=== PATIENT | female | born 1950 | race Caucasian/White ===

== ENCOUNTER 2021-05-09 09:58 | Outpatient (CLI) | payer MEDICARE, BC, SELFPAY ==
--- NOTE | 2021-05-09 09:45 | DI.RAD_ITS ---
Exam(s) XR PELVIS AP EXAM: XR PELVIS AP CLINICAL HISTORY: hip pain. TECHNIQUE: 2D digital imaging was performed. COMPARISON: No exams were available for comparison FINDINGS: No evidence of pelvic nor obvious hip fracture. Some calcification is noted off the superolateral as pect of the right hip which is possibly labral calcification. There is no significant joint space na rrowing in either hip. No obvious osteophytes. Sacroiliac joints appear age-appropriate. Single birch rgical clip in left side of the pelvis is noted. No osseous lesions. IMPRESSION: DATA REPOSITORY: RADIATION DOSE DELIVERED:
--- NOTE | 2021-05-09 09:45 | DI.RAD_ITS ---
Exam(s) XR KNEE RT 3V AP,LAT,RHEA EXAM: XR KNEE RT 3V AP,LAT,RHEA CLINICAL HISTORY: knee pain. TECHNIQUE: 2D digital imaging was performed. COMPARISON: No exams were available for comparison FINDINGS: There is no evidence of fracture but there does appear to be a small amount of increased joint fluid in the right knee. There is mild narrowing of the medial compartment. Chondrocalcinosis is noted in both the medial and lateral compartments, similar to the opposite side. Bone density is age-appropr iate. IMPRESSION: DATA REPOSITORY: RADIATION DOSE DELIVERED:
--- NOTE | 2021-05-09 09:45 | DI.RAD_ITS ---
Exam(s) XR KNEE LT 3V AP,LAT,RHEA EXAM: XR KNEE LT 3V AP,LAT,RHEA CLINICAL HISTORY: knee pain. TECHNIQUE: 2D digital imaging was performed. COMPARISON: CR XR KNEE RT 3V AP,LAT,RHEA from 05/09/2021 FINDINGS: No evidence of fracture nor left knee joint effusion. Mild narrowing of the medial compartment is no charles. There is chondrocalcinosis noted in both medial lateral compartments. No osseous lesions. Bon e density is age-appropriate. IMPRESSION: DATA REPOSITORY: RADIATION DOSE DELIVERED:
== END 2021-05-09 09:59 | disposition home or self-care (01) ==
LOC: DIORS 10:00
PROVIDERS: PCP Legal Medicine; Visit Provider Physician Assistant
DX: M11.261 Other chondrocalcinosis, right knee (principal); M11.262 Other chondrocalcinosis, left knee; M25.851 Other specified joint disorders, right hip
CPT/HCPCS: 73562; 72170

== ENCOUNTER → 2021-08-01 11:31 | Outpatient (BNVA) | payer MEDICARE, BC, SELFPAY | PROVIDERS: PCP Legal Medicine; Referring Provider Legal Medicine; Visit Provider Student in an Organized Health Care Education/Training Program | DX: M70.62 Trochanteric bursitis, left hip (principal); M11.262 Other chondrocalcinosis, left knee; M11.261 Other chondrocalcinosis, right knee; M25.561 Pain in right knee; M25.562 Pain in left knee | CPT/HCPCS: 20610; 99213; J1040 ==

== ENCOUNTER → 2022-05-30 08:51 | Outpatient (BNVA) | payer MEDICARE, BC, SELFPAY | PROVIDERS: PCP Legal Medicine; Referring Provider Legal Medicine; Visit Provider Physician Assistant | DX: M70.62 Trochanteric bursitis, left hip (principal) | CPT/HCPCS: 20610; J1040 ==

== ENCOUNTER → 2022-07-09 01:23 | Outpatient (CLI) | payer MEDICARE, BC, SELFPAY ==
--- NOTE | 2022-07-09 08:45 | DI.MAMMO_ITS ---
Exam(s) MAMMO SCREENING EXAM: MAMMO SCREENING CLINICAL HISTORY: SCREENING, Z12.39. TECHNIQUE: Bilateral full field digital CC and MLO mammographic images were obtained with 3D tomosyn thesis and utilizing computer aided detection (CAD). COMPARISON: Prior outside mammograms dating back to May 2019 (3 years) were reviewed, the most recent being June 2021. There is a significant family history here. Both her mother and sister were diagnosed with breast ca ncer, the sister prior to age 50. FINDINGS: There has been no significant change in appearance and distribution of the fibroglandular tissue. There are no new significant findings in the right breast. There are no new findings in the immediate vicinity of the biopsy marker clip in the left breast. Anteriorly in the left breast there are 2 findings. Firstly there is a small group of microcalcifica tions seen on the CC view located approximately 4 cm in from the nipple, slightly medial of center. These are unchanged from May 2019. There is also a small noncalcified nodular density anterior to this on the 3D cc view measuring 5 x 4 millimeters, located 3.5 cm in from the nipple, medial of center. This also was previously present on prior mammograms. No other significant focal left breast findings. There is no significant architectural distortion nor skin thickening-retraction. IMPRESSION: 1. No radiographic evidence of malignancy in the right breast. 2. To left breast findings as described above which are relatively stable when compared to outside ma mmograms dating back to 2018. I feel would be helpful to acquire any available additional further ba ck mammograms for comparison purposes. These are being sent for. An addendum to this mammogram report will follow. If you have not received this addendum in 2 weeks time then please contact me in the [facility] Radiology Department. BI-RADS Category 0 - Assessment Incomplete: Need additional imaging evaluation; specifically comparis on to additional prior mammograms, as described above. These are being sent for. Breast Density - Category B - Scattered areas of fibroglandular density Breast density Category C or D implies that the patient has dense breast tissue. Dense breast tissue can make it harder to find cancer on a mammogram. Dense breast tissue is also associated with an incr eased risk of breast cancer. This information about the result of the mammogram report was provided to the patient to raise their awareness. Use this report when you speak with the patient about their risks for breast cancer, which includes their family history. At that time, you may recommend additional screening tests (Ultrasoun d or MRI) as these tests may add significant information. A negative radiographic report should not delay biopsy if a dominant or clinically suspicious mass is present. Up to ten percent of cancers are not identified on mammography. A negative report may reinforce clinical impression. Adenosis and dense breasts may obscure an underlying neoplasm. False positive reports average 6 to 10%. Patient will receive a letter notifying them of these results.
== END ==
PROVIDERS: PCP Legal Medicine; Visit Provider Legal Medicine
DX: Z12.31 Encounter for screening mammogram for malignant neoplasm of breast (principal); R92.8 Other abnormal and inconclusive findings on diagnostic imaging of breast
CPT/HCPCS: 77063; 77067

== ENCOUNTER 2022-09-10 02:06 | Outpatient (CLI) | payer MEDICARE, BC, SELFPAY ==
[2022-09-12 06:03] LABS: IgA 200 mg/dL (85-499); IgG 1064 mg/dL (610-1616); IgM 37 mg/dL (35-242)
[2022-09-12 09:30] LABS: HBs Antibody, Quant <3.1 mIU/mL (See Note); Hepatitis B Surface Ab Negative (See Note)
[2022-09-12 09:47] LABS: Hepatitis B Surface Ag Negative (Negative)
[2022-09-13 13:40] LABS: Tissue Transglutaminase Ab IgA <1.2 U/mL
[2022-09-13 18:12] LABS: Mitochondrial Ab, M2 <0.1 U
== END 2022-09-10 02:07 | disposition home or self-care (01) ==
LOC: LBO 02:06
PROVIDERS: PCP Legal Medicine; Visit Provider Legal Medicine
DX: R74.01 Elevation of levels of liver transaminase levels (principal)
CPT/HCPCS: 36415; 82784; 83516; 86706; 87340

== ENCOUNTER → 2022-09-12 00:11 | Outpatient (CLI) | payer MEDICARE, BC, SELFPAY ==
--- NOTE | 2022-09-12 | DI.US_ITS ---
Exam(s) US ABDOMEN EXAM: US ABDOMEN CLINICAL HISTORY: ELEVATED TRANSAMINASES,? FATTY LIVER, CIRRHOSIS TECHNIQUE: Ultrasound abdomen performed using standard protocol. COMPARISON: No exams were available for comparison FINDINGS: Examination limited by patient body habitus. ABDOMINAL AORTA AND IVC: Visualized portions normal caliber. PANCREAS: Normal where visualized. LIVER: The liver appears to be of increased echogenicity consistent with fatty infiltration. It is n ormal in size measuring 15 cm long. Hepatopedal flow in the Portal Vein. GALLBLADDER:Status post cholecystectomy. BILIARY SYSTEM: Common bile duct measures < 7 mm. No intrahepatic biliary ductal dilation. KIDNEYS: The kidneys are difficult to visualize due to the patient body habitus. Given the limitatio ns of the examination, no stones or renal masses identified. Kidneys are symmetric in size. No evid ence of hydronephrosis. SPLEEN: Not enlarged. ASCITES: None seen. IMPRESSION: 1. Examination limited by patient body habitus. 2. Findings suggestive of fatty infiltration of the liver. 3. Status post cholecystectomy. No biliary ductal dilatation. DATA REPOSITORY:
== END ==
PROVIDERS: PCP Legal Medicine; Visit Provider Legal Medicine
DX: K76.0 Fatty (change of) liver, not elsewhere classified (principal); R74.01 Elevation of levels of liver transaminase levels; Z90.49 Acquired absence of other specified parts of digestive tract
CPT/HCPCS: 76700

== ENCOUNTER → 2023-09-08 00:45 | Outpatient (CLI) | payer MEDICARE, BC, SELFPAY ==
--- NOTE | 2023-09-08 | DI.MAMMO_ITS ---
Exam(s) MAMMO SCREENING EXAM: MAMMO SCREENING CLINICAL HISTORY: SCREENING MAMMO FOR BREAST CANCER Z12.31. TECHNIQUE: Bilateral full field digital CC and MLO mammographic images were obtained with 3D tomosyn thesis and utilizing computer aided detection (CAD). COMPARISON: Prior mammograms were reviewed. FINDINGS: There has been no significant change in the appearance and distribution of the fibroglandular tissue. No new right breast findings. No new findings in the immediate vicinity of the biopsy marker clip which is located anteriorly in th e left breast. Stable microcalcification group in the left breast is again noted. There are no new malignant-appearing microcalcification groups. There is no significant architectural distortion nor skin thickening-retraction. IMPRESSION: Stable benign-appearing findings. No radiographic evidence of malignancy BI-RADS Category 2 - Benign Findings Breast Density - Category B - Scattered areas of fibroglandular density Breast density Category C or D implies that the patient has dense breast tissue. Dense breast tissue can make it harder to find cancer on a mammogram. Dense breast tissue is also associated with an incr eased risk of breast cancer. This information about the result of the mammogram report was provided to the patient to raise their awareness. Use this report when you speak with the patient about their risks for breast cancer, which includes their family history. At that time, you may recommend additional screening tests (Ultrasoun d or MRI) as these tests may add significant information. A negative radiographic report should not delay biopsy if a dominant or clinically suspicious mass is present. Up to ten percent of cancers are not identified on mammography. A negative report may reinforce clinical impression. Adenosis and dense breasts may obscure an underlying neoplasm. False positive reports average 6 to 10%. Patient will receive a letter notifying them of these results.
== END ==
PROVIDERS: PCP Legal Medicine; Visit Provider Legal Medicine
DX: Z12.31 Encounter for screening mammogram for malignant neoplasm of breast (principal)
CPT/HCPCS: 77063; 77067

== ENCOUNTER → 2023-09-24 00:55 | Outpatient (CLI) | payer MEDICARE, BC, SELFPAY ==
--- NOTE | 2023-09-24 | ETT_ITS ---
APPROVED REPORT Exam: Exercise Treadmill Patient Location: Out-Patient Room/Bed: Stress Nurse: Zoe Cisneros RN Ordering Provider:YAAKOV DELANEY, Contact Number: [phone] BMI: 35.72 Baseline Rhythm: Sinus Bradycardia Indications: Chest pressure, Medical History Medical History: Hearing loss, fibromyalgia, HTN, hodgkins disease Cardiac Medications: Amlodipine, atenolol Allergies: Sulfa Cardiac Risk Factors: Family hx, HTN, obesity Previous Cardiac Procedures: None Pretest Chest Pain Characteristics: None Exercise History: Indeterminate Physical Disabilities: Left knee Lung Sounds: Clear to auscultation Heart Sounds: Regular Stress Test Details Test: Exercise stress testing was performed using a Christiano protocol. Rest Stress HR Resting HR Supine: 59 bpm Max Heart Rate (APMHR): 150 bpm Resting HR Standin bpm Target HR (85% APMHR): 128 bpm Max HR Achieved: 128 bpm % of APMHR: 85 Recovery HR: 69 bpm HR response to stress: Normal HR response to stress BP Resting BP Supine: 162/96 mmHg Resting BP Standin/92 mmHg Max BP: 174/68 mmHg Recovery BP: 146/86 mmHg BP response to stress: Normal blood pressure response to stress. ECG Resting ECG: Sinus Bradycardia Ectopy: None Stress ECG: Sinus Tachycardia ST Change: Horizontal ST depression, Downsloping ST depression Lead(s): Inferior, V6 Stage: [address] Deviation: 1-4 mm Arrhythmia: None Recovery ECG: Sinus Rhythm Recovery ST Change: Horizontal ST depression, Downsloping ST depression Lead(s): inferior, V6 Recovery ST Deviation: 1-4 mm Recovery Arrhythmia: None Clinical Reason for Termination: Dyspnea , Target HR Achieved, , Fatigue Stress Symptoms: Dyspnea, General Fatigue Exercise duration: 06 min15 sec Highest Stage Reached: Stage 2: 2.5 mph at 12% grade. Exercise capacity: 5.3 METs Angina Score: None Jules Treadmill Score: 5.0 Rate Pressure Product: [id number] Stress ECG Conclusion 1. 1.Normal clinical response 2. 2.Normal BP response 3. 3.Normal HR response 4. 4. Equivocal ECG with poor baseline ans possible inferolateral ST abnormality suggestive of ischem ia. Jules Treadmill Score is 5.0 which is Low risk. Stress Test Summary STAGE Time (mins) Speed (mph) Grade (%) HR BP SpO2 SYMPTOMS METS Supine 59 162/96 94 Standing 71 148/92 1 3 1.7 10 115 170/84 4.5 2 6 2.5 12 128 7 1 min recovery 110 174/68 98 3 min recovery 79 170/72 6 min recovery 69 146/86 98
== END ==
PROVIDERS: PCP Legal Medicine; Visit Provider Legal Medicine
DX: R07.89 Other chest pain (principal)
CPT/HCPCS: 93016; 93018; 93017

== ENCOUNTER 2024-10-06 00:13 | Outpatient (CLI) | payer MEDICARE, BC, SELFPAY ==
--- NOTE | 2024-10-06 | DI.MAMMO_ITS ---
Exam(s) MAMMO SCREENING EXAM: MAMMO SCREENING CLINICAL HISTORY: SCREENING, Z12.31,STRONG FAMILY H/O BREAST CA TECHNIQUE: Mammograms were interpreted according to the usual protocol including computer analysis w Normal CAD system, tomosynthesis and C-view imaging. COMPARISON: 2014 through 2022 FINDINGS: The breasts are composed of scattered fibroglandular densities, Breast Density category B. No suspicious masses or suspicious microcalcifications are seen. Biopsy marker clip noted in left br east. No skin thickening or abnormal axillary lymph nodes are seen. There has been no significant change from prior exams. IMPRESSION: BI-RADS Category 1, Negative mammogram Yearly screening mammography is recommended. Breast Density - Category B, scattered fibroglandular densities. A negative radiographic report should not delay biopsy if a dominant or clinically suspicious mass is present. Up to ten percent of cancers are not identified on mammography. A negative report may reinforce clinical impression. Adenosis and dense breasts may obscure an underlying neoplasm. False positive reports average 6 to 10%. Patient will receive a letter notifying them of these results.
== END 2024-10-06 00:33 ==
PROVIDERS: PCP Legal Medicine; Visit Provider Legal Medicine
DX: Z12.31 Encounter for screening mammogram for malignant neoplasm of breast (principal); R92.323 Mammographic fibroglandular density, bilateral breasts
CPT/HCPCS: 77063; 77067

== ENCOUNTER 2025-03-30 01:04 | Outpatient (CLI) | payer MEDICARE, BC, SELFPAY ==
--- NOTE | 2025-03-30 | DI.NM_ITS ---
APPROVED REPORT Exam: Pharmacologic Patient Location: Out-Patient Room/Bed: Stress Nurse: Zoe Cisneros RN Ordering Provider:YAAKOV DELANEY, Contact Number: [phone] BMI: 36.80 Baseline Rhythm: Sinus Bradycardia Comment: 1st degree AV block Indications: Exertional shortness of breath Medical History Medical History: Hodgkins disease, HTN, fibromyalgia, premature menopause, sleep apnea Cardiac Medications: Amlodipine, atenolol, diclofenac, famotidine Allergies: Sulfa Cardiac Risk Factors: Family hx, HTN, obesity Previous Cardiac Procedures: None Pretest Chest Pain Characteristics: None Exercise History: Sedentary Physical Disabilities: Knee pain (refused treadmill) Lung Sounds: Clear to auscultation Heart Sounds: Regular Stress Test Details Test: Pharmacologic stress testing performed using 0.4 mg of regadenoson per 5 mL given IV over 10 seconds. Reason for pharmacologic stress test: physical limitation. Nuclear Acquisition: Rest Tc-99m/Stress Tc-99m 1 day Rest Isotope: Tc-99m Sestamibi. Dose: 10.0 Date: 03/30/2025 Injection Time: 0845 Stress Isotope: Tc-99m Sestamibi. Dose: 30.0 Date: 03/30/2025 Injection Time: 1020 HR Resting HR Supine: 59 bpm Max Heart Rate (APMHR): 148 bpm Target HR (85% APMHR): 126 bpm Max HR Achieved: 92 bpm % of APMHR: 62 Recovery HR: 71 bpm BP Resting BP Supine: 180/82 mmHg Max BP: 182/96 mmHg Recovery BP: 164/84 mmHg ECG Resting ECG: Sinus Bradycardia, 1st degree AV block Ectopy: None Stress ECG: Sinus Rhythm, , 1st degree AV block, T wave inversion noted in leads II, III, AVF and V3-V6 s/p real injection ST Change: Nondiagnostic low heart rate Arrhythmia: Occasional PVC's, quadrigeminy, trigeminy Recovery ECG: Sinus Rhythm, 1st degree AV block, T wave inversion noted in leads II, III, AVF and V3-V6 Recovery ST Change: Nondiagnostic low heart rate Recovery Arrhythmia: None Clinical Stress Symptoms: Mild SOB, mild chest burning Angina Score: Non-Limiting Rate Pressure Product: [id number] Stress ECG Conclusion 1. Resting electrocardiogram showed minor nondiagnostic ST abnormalities 2. Patient underwent testing using pharmacologic stress with regadenoson 3. Peak heart rate achieved was 62% of maximal predicted for age. Hypertension was noted throughout 4. Post regadenoson, the electrocardiogram showed diffuse [address] depressio 5. There were no significant dysrhythmias 6. See MPI report Stress Test Summary STAGE HR BP SpO2 Symptoms NOTES Supine 59 180/82 95% 1 min post Lexiscan injection 75 182/96 96% Mild SOB 3 min post Lexiscan injection 90 176/76 6 min post Lexiscan injection 78 158/88 98% Mild SOB 9 min post Lexiscan injection 75 152/90 98% SOB resolved, C/O mild chest burning 12 min post Lexiscan injection 72 164/84 97% All symptoms resolved Patient refused to use treadmill r/t knee pain. T wave inversiona noted in inferior leads as well as V3-V6. Dr. Jones notifed and viewed EKG images. C/O Mild SOB s/p real and mild burning sensation in chest. All symptoms resolved. Patient ok to proceed to imaging per Dr. Jones. Patient proceeded to imaging ambulatory in no apparent distess. MPI Conclusion Myocardial perfusion is normal. There is no ischemia or evidence of prior infarction Ejection fraction is 73% with normal wall motion
[2025-03-30] MEDS: Regadenoson 0.4 MG/5 ML SYR IVP (11:15)
== END 2025-03-30 01:24 ==
PROVIDERS: PCP Legal Medicine; Visit Provider Internal Medicine Cardiovascular Disease
DX: R06.02 Shortness of breath (principal)
CPT/HCPCS: 78452; 93016; 93018; 93017; J2785